=== PATIENT | male | born 1960 | race Caucasian/White ===

== ENCOUNTER 2023-03-10 09:08 | Outpatient (CLI) | payer MEDICARE, SELFPAY ==
--- NOTE | ~2023-03-10 | CT_ITS ---
Clinical Indication: Shortness of breath, tachycardia CT Scan of the Chest with Contrast: Technique: Contiguous sections were acquired throughout the chest after intravenous administration of 100 cc of Omnipaque 350. Dose reduction technique was used on this scan by utilizing automated expos ure control and iterative reconstruction technique. The dose-length product (DLP) was 250.09 mGy-cm. COMPARISON: 10/04/2015 Findings: There is no evidence of any significant mediastinal, hilar or axillary lymphadenopathy. There is no f illing defect in the pulmonary arterial tree to suggest pulmonary embolus. There is no evidence of ao rtic dissection or aneurysm. There is no evidence of pleural or pericardial effusion. Mild emphysema. Calcified granuloma noted at the right lung base. Images through the upper abdomen reveal no abnormalities. Impression: No evidence of pulmonary embolus, aortic dissection, or aortic aneurysm. Mild emphysema. Reviewed, dictated and finalized at [facility]. Impression: No evidence of pulmonary embolus, aortic dissection, or aortic aneurysm. Mild emphysema.
[2023-03-10 09:32] LABS: Estimated Glomerular Filt Rate > 60
== END 2023-03-10 09:09 | disposition home or self-care (01) ==
PROVIDERS: PCP Family Medicine; Visit Provider Physician Assistant
DX: R06.02 Shortness of breath (principal); R00.0 Tachycardia, unspecified; J43.9 Emphysema, unspecified
CPT/HCPCS: 71275; Q9967

== ENCOUNTER 2024-09-12 18:31 | Emergency (ER) | payer MEDICARE, SELFPAY ==
--- NOTE | ~2024-09-12 | CT_ITS ---
EXAMINATION: CT cervical spine wo con DATE: 09/12/2024 19:18 INDICATION: Lower extremity numbness post 6 foot fall from truck TECHNIQUE: Computed tomography (CT) of the cervical spine was performed without intravenous contrast. Automated exposure control and iterative reconstruction technique were employed. The dose-length pro duct was 294.07 mGy-cm. COMPARISON: None FINDINGS: Alignment is normal. Moderate osteoarthritis at the atlantoaxial articulation. Vertebral body heights are normal. No fracture. Disc heights are normal. Disc bulges contributing to minimal central canal stenosis at L2-L3, L3-L4 and L4-L5 and more prominent disc bulge with endplate osteophytes and mild c entral canal stenosis at C6-C7. Moderate uncovertebral osteoarthritis on the right at C6-C7. Mild unc overtebral osteoarthritis throughout the remainder of the cervical spine. Severe facet osteoarthritis bilaterally at C7-T1 and on the right at C2-C3 and C3-C4. Mild to moderate facet osteoarthritis at t he remaining cervical levels. This contributes to multilevel bilateral minimal to mild neural foramin al stenosis is prominent bilaterally at C6-C7. Atherosclerotic calcifications at the bilateral caroti d bulbs. Cervical soft tissues are otherwise unremarkable. Mild biapical pleural-parenchymal scarring . IMPRESSION: 1. Mild cervical spondylosis. No acute osseous abnormality. Reviewed, dictated and finalized at location A.
--- NOTE | ~2024-09-12 | CT_ITS ---
EXAMINATION: CT thoracic lumbar wo con DATE: 09/12/2024 19:18 INDICATION: Lower extremity numbness post 6 foot fall from truck TECHNIQUE: Computed tomography (CT) of the thoracic MR lumbar spine was performed without intravenous contrast. Automated exposure control and iterative reconstruction technique were employed. The dose- length product was 541.15 mGy-cm. COMPARISON: None FINDINGS: Thoracic spine: 8 degree thoracic dextrocurvature. Sagittal alignment is normal. No interval change in minimal anteri or wedging at T7 and mild central endplate compression fracture along the superior endplates of T3 an d T9-T12. No acute fractures identified. There is mild disc height loss at multiple levels throughout the thoracic spine with vacuum phenomena at multiple levels in the mid and lower thoracic spine. Rig ht paracentral disc protrusion at T10-T11 and T12-L1 and small central disc protrusion at T11-T12 whi ch resulting in mild central canal stenosis at each level. There is mild to moderate multilevel bilat eral thoracic facet osteoarthritis most prominent at the upper thoracic lower thoracic spine. Paraver tebral soft tissues and visualized portion of lungs are unremarkable. Lumbar spine: 12 degrees lumbar levoscoliosis. 2 mm retrolisthesis L1 on L2 and 3 mm retrolisthesis L4 on L5. Chron ic appearing mild anterior wedging at L1 and additional chronic superior endplate compression fractur e at the left superior endplate of L3. There is anterior fusion and and posterior fusion at the bilat eral facet joints at L3-L4. Severe right-sided predominant disc height loss at L1-L2 and left-sided p redominant disc height loss at L4-L5, both with associated sclerotic Modic type III degenerative endp late changes. Severe bilateral facet osteoarthritis at L2-L3, L4-L5 and L5-S1. Moderate central canal stenosis at L2-L3, mild to moderate central canal stenosis at L1-L2 and L4-L5. There is multilevel n eural foraminal stenosis, moderate bilaterally at L1-L2, L2-L3, L4-L5 and L5-S1 and mild bilaterally at L3-L4. Bilateral nonobstructing nephrolithiasis paravertebral soft tissues are otherwise unremarka ble. As in close proximity bilateral sacroiliac joints. IMPRESSION: 1. Multiple chronic compression fractures in the thoracic and lumbar spine. No acute osseous abnormal ity. 2. Mild thoracic and severe lumbar spondylosis. 3. Bilateral nonobstructing nephrolithiasis. Reviewed, dictated and finalized at location A. IMPRESSION: 1. Multiple chronic compression fractures in the thoracic and lumbar spine. No acute osseous abnormality. 2. Mild thoracic and severe lumbar spondylosis. 3. Bilateral nonobstructing nephrolithiasis.
[2024-09-12 18:36] VITALS: BP 185/85; PULSE 121; RESP 18; TEMP 36.7; O2SAT 94
--- NOTE | 2024-09-12 18:52 | ECG_ITS ---
Test Date: 2024-09-12 20:43:01 Measurements Intervals [place]born Rate: 108 P: 82 [place]: 128 QRS: 69 QRSD: 91 T: 71 QT: 332 QTc: 445 Interpretive Statements SINUS TACHYCARDIA No previous ECG available for comparison Electronically Signed On 09-13-2024 09:41:36 CDT by Komal Harris M.D.
--- NOTE | 2024-09-12 18:54 | ED.FALL ---
HPI - Fall General Chief Complaint: Fall <Mayra Marquez APRN - Last Filed: 09/12/24 18:58> Stated Complaint: fall with back pain <Mayra Marquez APRN - Last Filed: 09/12/24 18:58> Time Seen by Provider: 09/12/24 18:45 <Mayra Marquez APRN - Last Filed: 09/12/24 18:58> Patient is a 64-year-old male who presents to the ER after falling off the back of a truck onto concrete. He reports he was reporting a friend move some things for when he stepped off the back of a truck and landed on his back. Patient reports he knocked the wind up myself. He endorses some tingling in his lower extremities. Patient also endorses increased pain in lower extremities with movement. He denies any chest pain, shortness of breath, or one-sided weakness/tingling/numbness. <Mayra Marquez APRN - Last Filed: 09/12/24 18:58> History of Present Illness HPI Narrative: Kisha HPI. No injury to head. Only back. No lower extremity numbness or weakness. Pain worse with movement. <Brody Aden MD - Last Filed: 09/12/24 22:03> Related Data Home Medications: Home Medications Medication Instructions Recorded Confirmed B6 0.85 mg-folic 200 tablet PO 1XD 02/23/23 05/08/23 [id number] oral chewable tablet (Neuriva Plus) alprazolam 2 mg tablet 2 mg PO BID 02/23/23 05/08/23 baclofen 20 mg tablet 20 mg PO TID 02/23/23 05/08/23 mecobalamin (vitamin B12) 1,000 1,000 mcg PO BID 02/23/23 05/08/23 mcg chewable tablet mirtazapine 45 mg tablet 45 mg PO DAILY 02/23/23 05/08/23 omega-3 fatty acids 1,000 mg 1,000 mg PO DAILY 02/23/23 05/08/23 capsule vitamin A 2,400 mcg capsule 2,400 mcg PO DAILY 02/23/23 05/08/23 vitamin E (dl, acetate) 180 mg 180 mg PO DAILY 02/23/23 05/08/23 (400 unit) capsule <Mayra Marquez APRN - Last Filed: 09/12/24 18:58> Allergies/Adverse Reactions: Allergies Allergy/AdvReac Type Severity Reaction Status Date / Time No Known Allergies Allergy Unverified 05/08/23 11:10 <Mayra Marquez APRN - Last Filed: 09/12/24 18:58> Review of Systems Constitutional: Constitutional: Reports no additional constitutional complaints <Brody Aden MD - Last Filed: 09/12/24 22:03> Cardiovascular: Cardiovascular: Reports no additional cardiovascular complaints <Brody Aden MD - Last Filed: 09/12/24 22:03> Respiratory: Respiratory: Reports no additional respiratory complaints <Brody Aden MD - Last Filed: 09/12/24 22:03> Musculoskeletal: Musculoskeletal: Reports back pain, Denies arthralgias, Denies joint swelling and Denies muscle cramps <Brody Aden MD - Last Filed: 09/12/24 22:03> Neurologic: Reports system reviewed and no additional complaints, except as documented <Brody Aden MD - Last Filed: 09/12/24 22:03> PMFSH Past Medical History Medical History: Medical History Anxiety Seizures Last 09/26/2020 Shortness of Breath <Mayra Marquez APRN - Last Filed: 09/12/24 18:58> Social History Social History: Social History Smoking status: Never smoker (Never tobacco smoker - smokes marijuana , addressed again today) <Mayra Marquez APRN - Last Filed: 09/12/24 18:58> Exam Narrative: GENERAL: Well-appearing, well-nourished, and in no acute distress. HEAD: Normocephalic, atraumatic ENT: Mucous membranes moist. NECK: Supple. C-spine immobilized but no midline tenderness and brace removed. CHEST: Clear to auscultation. No respiratory distress. HEART: Tachycardic regular. Normal peripheral pulses. Back: Mild discomfort over the upper lumbar vertebrae where there are abrasions that bandages been placed over. No step-offs. No bruising. Diffuse paraspinal muscle tenderness in the lower lumbar back. EXTREMITIES: Normal range of motion. No edema. NEURO: Alert
[2024-09-12 20:37] VITALS: BP 178/111; PULSE 122; RESP 19; TEMP 36.9; O2SAT 98
[2024-09-12] MEDS: HYDROcodone/acetaminophen (*CRX) 5-325 MG TABLET 1 TAB PO (20:39)
[2024-09-12] MEDS: SODIUM CHLORIDE 0.9% IV 1,000 ML 999 ML IV CONT (20:45)
[2024-09-12] MEDS: diazePAM INJ (*CRX) 10 MG/2 ML SYRINGE 5 MG IV PUSH (20:46)
[2024-09-12] MEDS: KETOROLAC 30 MG/ML VIAL (*BKC) IV PUSH (20:46)
== END 2024-09-12 22:10 | disposition home or self-care (01) ==
PROVIDERS: Emergency Provider Emergency Medicine
DX: M54.50 Low back pain, unspecified (principal); M47.816 Spondylosis without myelopathy or radiculopathy, lumbar region; F41.9 Anxiety disorder, unspecified
CPT/HCPCS: 72125; 72128; 72131; 93005; 96361; 96374; 96375; 99284; A9270; J1885; J3360; J7030

== ENCOUNTER 2024-09-16 10:47 | Emergency (ER) | payer MEDICARE, SELFPAY ==
--- NOTE | ~2024-09-16 | XR_ITS ---
EXAMINATION: XR chest 2V DATE: 09/16/2024 12:21 INDICATION: Chest pain. TECHNIQUE: Frontal and lateral views of the chest were obtained. COMPARISON: Thoracic spine CT 09/12/2024 FINDINGS: A calcified right lung nodule is consistent with old granulomatous disease. No pleural effu yuly or pneumothorax. The heart size is normal. IMPRESSION: 1. No acute cardiopulmonary disease. Reviewed, dictated and finalized at location A.
[2024-09-16 10:53] VITALS: BP 175/111; PULSE 138; RESP 20; TEMP 36.6; O2SAT 97
--- NOTE | 2024-09-16 10:53 | ECG_ITS ---
Test Date: 2024-09-16 10:59:36 Measurements Intervals Nelson Rate: 124 P: 85 [place]: 137 QRS: 68 QRSD: 93 T: 69 QT: 300 QTc: 431 Interpretive Statements SINUS TACHYCARDIA Compared to ECG 09/12/2024 20:43:01 No significant changes Electronically Signed On 09-16-2024 15:37:05 CDT by Komal Harris M.D.
[2024-09-16] MEDS: KETOROLAC 15 MG/ML VIAL (*BKC) IV PUSH (12:24)
[2024-09-16] MEDS: SODIUM CHLORIDE 0.9% IV 1,000 ML 999 ML IV CONT (12:24)
[2024-09-16 12:39] LABS: Basophils Absolute Auto 0.1 K/mm3 (0.0-0.1); Basophils Percent Auto 0.8 % (0.2-1.2); Eosinophils Absolute Auto 0.3 K/mm3 (0-0.3); Eosinophils Percent Auto 2.3 % (0-4.4); Hematocrit 39.9 % (42.0-52.0); Hemoglobin 13.3 g/dL (14.0-18.0); Immature Granulocyte Absolute 0.09 K/mm3 (0.00-0.031); Immature Granulocyte Percent A 0.8 % (0-0.5); Lymphocytes Absolute Auto 1.93 K/mm3 (0.9-3.2); Mean Corpuscular HGB Conc 33.3 g/dl (32-36); Mean Corpuscular Hemoglobin 31.2 pg (26-34); Mean Corpuscular Volume 93.7 fl (80-100); Mean Platelet Volume 8.7 fl (7.4-10.4); Monocytes Absolute Auto 1.1 K/mm3 (0.1-0.6); Monocytes Percent Auto 9.8 % (2.6-8.5); Neutrophils Absolute Auto 7.9 K/mm3 (1.3-6.7); Neutrophils Percent Auto 69.3 % (45.5-73.1); Platelet Count Result 301 k/mm3 (150-375); Red Blood Count 4.26 M/mm3 (4.6-6.20); Red Cell Distribution Width 11.9 % (11.5-14.5); White Blood Count 11.4 K/mm3 (4.5-10.0)
[2024-09-16 12:46] LABS: Alanine Aminotransferase 22 U/L (6-50); Albumin Level 4.3 g/dL (3.5-5.1); Alkaline Phosphatase 58 U/L (38-126); Anion Gap 10 mmol/L (4-12); Aspartate Amino Transferase 25 U/L (17-59); Bilirubin,Total 0.6 mg/dL (0.2-1.3); Blood Urea Nitrogen 17 mg/dL (9-20); Calcium 9.1 mg/dL (8.4-10.2); Carbon Dioxide 26 mmol/L (22-30); Chloride 105 mmol/L (98-107); Estimated CRCL calculation 72 ml/min; Estimated Glomerular Filt Rate > 60; Glucose 94 mg/dL (65-110); Potassium 4.2 mmol/L (3.4-5.0); Sodium 141 mmol/L (137-145)
[2024-09-16 12:48] LABS: Prothrombin Time 13.9 Seconds (11.1-14.7)
[2024-09-16 12:49] LABS: Partial Thromboplastin Time 28.9 Seconds (22.3-36.8)
[2024-09-16 12:56] LABS: Troponin I < 0.012 ng/mL (0.000-0.034)
--- NOTE | 2024-09-16 13:16 | ED_ITS ---
HPI - Back Pain/Injury General Chief Complaint: Back Pain/Injury Stated Complaint: back pain Time Seen by Provider: 09/16/24 11:57 History of Present Illness HPI Narrative: Patient is a 64-year-old male who presents ER with back pain. He had a fall 4 days ago of a truck. He had CT imaging of his C/T/L-spine. There were no acute fractures. He has been taking anti-inflammatories and muscle relaxers. Reports that helps his pain significantly. Unfortunately he has had a couple points over last 2 days where he has increased waves of pain that are sharp. Ill go from his flu up towards his neck. No numbness or tingling in the legs or groin. Normal bowel movements. Denies fevers or chills or sweats. He also had a sharp pain that radiated from his back around his chest. No dyspnea or hemoptysis. No leg swelling. No personal chest pain or shortness of breath. Related Data Home Medications Medication Instructions Recorded Confirmed B6 0.85 mg-folic 200 tablet PO 1XD 02/23/23 05/08/23 [id number] oral chewable tablet (Neuriva Plus) alprazolam 2 mg tablet 2 mg PO BID 02/23/23 05/08/23 baclofen 20 mg tablet 20 mg PO TID 02/23/23 05/08/23 mecobalamin (vitamin B12) 1,000 1,000 mcg PO BID 02/23/23 05/08/23 mcg chewable tablet mirtazapine 45 mg tablet 45 mg PO DAILY 02/23/23 05/08/23 omega-3 fatty acids 1,000 mg 1,000 mg PO DAILY 02/23/23 05/08/23 capsule vitamin A 2,400 mcg capsule 2,400 mcg PO DAILY 02/23/23 05/08/23 vitamin E (dl, acetate) 180 mg 180 mg PO DAILY 02/23/23 05/08/23 (400 unit) capsule Allergies Allergy/AdvReac Type Severity Reaction Status Date / Time No Known Allergies Allergy Unverified 05/08/23 11:10 Review of Systems Review of Systems: All systems reviewed & are unremarkable except as noted in HPI and below Constitutional: Constitutional: Reports no additional constitutional complaints Cardiovascular: Cardiovascular: Reports no additional cardiovascular complaints Gastrointestinal: Gastrointestinal: Reports no additional gastrointestinal complaints Musculoskeletal: Musculoskeletal: Reports no additional musculoskeletal complaints PMFSH Past Medical History Medical History Anxiety Seizures Last 09/26/2020 Shortness of Breath Social History Social History Smoking status: Never smoker (Never tobacco smoker - smokes marijuana , addressed again today) Exam Narrative: GENERAL: Well-appearing, well-nourished, and in no acute distress. HEAD: Normocephalic, atraumatic. ENT: Mucous membranes moist. CHEST: Clear to auscultation. No respiratory distress. HEART: Regular rate and rhythm. Normal peripheral pulses. ABDOMEN: Soft, nontender, nondistended. BACK: No midline or paraspinal tenderness of the T/L-spine. Healing abrasions over the will lower midline vertebrae of the L-spine. EXTREMITIES: Normal range of motion. No edema. SKIN: Warm, dry, no rash. NEURO: Alert and oriented x3. PSYCH: Normal mood and affect. Course Course Emergency Course: Blood work within normal limits. Troponin specifically is negative. Chest x- ray without acute process. Symptoms felt to be musculoskeletal in nature. Patient given reassurance. Continue anti-inflammatories muscle relaxers. Vital Signs Vital signs: Vital Signs Temperature 97.8 F 09/16/24 10:53 Pulse Rate 138 H 09/16/24 10:53 Respiratory Rate 20 09/16/24 10:53 Blood Pressure 175/111 H 09/16/24 10:53 Pulse Oximetry 97 09/16/24 10:53 Oxygen Delivery Room Air 09/16/24 10:53 Temperature 97.8 F 09/16/24 10:53 Pulse Rate 138 H 09/16/24 10:53 Respiratory Rate 20 09/16/24 10:53 Blood Pressure 175/111 H 09/16/24 10:53 Pulse Oximetry 97 09/16/24 10:53 Oxygen Delivery Room Air 09/16/24 10:53 MDM - Back Pain/Injury Lab Data 09/16/24 12:26 09/16/24 12:26 Labs: Lab Results 09/16/24 09/16/24 09/16/24 Range/Units 12:26 12: 12:26 WBC 11.4 H (4.5-10.0) K/mm3 RBC 4.26 L (4.6-6.20) M/mm3 Hgb 13.3 L (14.0-18.0) g/dL Hct 39.9 L (42.0-52.0) % MCV 93.7 (80-100) fl MCH 31.2 (26-34) pg MCHC 33.3 (32-36) g/dl RDW 11.9 (11.5-14.5) % Plt Count 301 (150-375) k/mm3 MPV 8.7 (7.4-10.4) fl Immature Gran % (Auto) 0.8 H (0-0.5) % Neut % (Auto) 69.3 (45.5-73.1) % Lymph % (Auto) 17.0 L (18.3-44.2) % Perkins % (Auto) 9.8 H (2.6-8.5) % Eos % (Auto) 2.3 (0-4.4) % Baso % (Auto) 0.8 (0.2-1.2) % Lymph # (Auto) 1.93 (0.9-3.2) K/mm3 Perkins # (Auto) 1.1 H (0.1-0.6) K/mm3 Eos # (Auto) 0.3 (0-0.3) K/mm3 Baso # (Auto) 0.1 (0.0-0.1) K/mm3 Abs Immat Gran (auto) 0.09 H (0.00-0.031) K/mm3 Absolute Neuts (auto) 7.9 H (1.3-6.7) K/mm3 Absolute Nucleated RBC 0.000 (0.0-0.012) K/mm3 Nucleated RBC % 0.0 (0.0-0.2) % PT 13.9 (11.1-14.7) Seconds INR 1.0 APTT 28.9 (22.3-36.8) Seconds Sodium Cancelled 141 Potassium Cancelled 4.2 Chloride Cancelled Carbon Dioxide Anion Gap BUN Creatinine Estim Creat Clear Calc Estimated GFR Glucose Calcium Total Bilirubin AST ALT Alkaline Phosphatase Troponin I (0.000-0.034) ng/mL Total Protein Albumin 09/16/24 09/16/24 09/16/24 Range/Units 12:26 12:26 12:26 WBC (4.5-10.0) K/mm3 RBC (4.6-6.20) M/mm3 Hgb (14.0-18.0) g/dL Hct (42.0-52.0) % MCV (80-100) fl MCH (26-34) pg MCHC (32-36) g/dl RDW (11.5-14.5) % Plt Count (150-375) k/mm3 MPV (7.4-10.4) fl Immature Gran % (Auto) (0-0.5) % Neut % (Auto) (45.5-73.1) % Lymph % (Auto) (18.3-44.2) % Perkins % (Auto) (2.6-8.5) % Eos % (Auto) (0-4.4) % Baso % (Auto) (0.2-1.2) % Lymph # (Auto) (0.9-3.2) K/mm3 Perkins # (Auto) (0.1-0.6) K/mm3 Eos # (Auto) (0-0.3) K/mm3 Baso # (Auto) (0.0-0.1) K/mm3 Abs Immat Gran (auto) (0.00-0.031) K/mm3 Absolute Neuts (auto) (1.3-6.7) K/mm3 Absolute Nucleated RBC (0.0-0.012) K/mm3 Nucleated RBC % (0.0-0.2) % PT (11.1-14.7) Seconds INR APTT (22.3-36.8) Seconds Sodium Potassium Chloride 105 Carbon Dioxide Cancelled 26 Anion Gap Cancelled 10 BUN Cancelled Creatinine Estim Creat Clear Calc Estimated GFR Glucose Calcium Total Bilirubin AST ALT Alkaline Phosphatase Troponin I (0.000-0.034) ng/mL Total Protein Albumin 09/16/24 09/16/24 09/16/24 Range/Units 12: 12: 12:26 WBC (4.5-10.0) K/mm3 RBC (4.6-6.20) M/mm3 Hgb (14.0-18.0) g/dL Hct (42.0-52.0) % MCV (80-100) fl MCH (26-34) pg MCHC (32-36) g/dl RDW (11.5-14.5) % Plt Count (150-375) k/mm3 MPV (7.4-10.4) fl Immature Gran % (Auto) (0-0.5) % Neut % (Auto) (45.5-73.1) % Lymph % (Auto) (18.3-44.2) % Perkins % (Auto) (2.6-8.5) % Eos % (Auto) (0-4.4) % Baso % (Auto) (0.2-1.2) % Lymph # (Auto) (0.9-3.2) K/mm3 Perkins # (Auto) (0.1-0.6) K/mm3 Eos # (Auto) (0-0.3) K/mm3 Baso # (Auto) (0.0-0.1) K/mm3 Abs Immat Gran (auto) (0.00-0.031) K/mm3 Absolute Neuts (auto) (1.3-6.7) K/mm3 Absolute Nucleated RBC (0.0-0.012) K/mm3 Nucleated RBC % (0.0-0.2) % PT (11.1-14.7) Seconds INR APTT (22.3-36.8) Seconds Sodium Potassium Chloride Carbon Dioxide Anion Gap BUN 17 Creatinine Cancelled 0.80 Estim Creat Clear Calc Cancelled 72 Estimated GFR Cancelled Glucose Calcium Total Bilirubin AST ALT Alkaline Phosphatase Troponin I (0.000-0.034) ng/mL Total Protein Albumin 09/16/24 09/16/24 09/16/24 Range/Units 12:26 12:26 12:26 WBC (4.5-10.0) K/mm3 RBC (4.6-6.20) M/mm3 Hgb (14.0-18.0) g/dL Hct (42.0-52.0) % MCV (80-100) fl MCH (26-34) pg MCHC (32-36) g/dl RDW (11.5-14.5) % Plt Count (150-375) k/mm3 MPV (7.4-10.4) fl Immature Gran % (Auto) (0-0.5) % Neut % (Auto) (45.5-73.1) % Lymph % (Auto) (18.3-44.2) % Perkins % (Auto) (2.6-8.5) % Eos % (Auto) (0-4.4) % Baso % (Auto) (0.2-1.2) % Lymph # (Auto) (0.9-3.2) K/mm3 Perkins # (Auto) (0.1-0.6) K/mm3 Eos # (Auto) (0-0.3) K/mm3 Baso # (Auto) (0.0-0.1) K/mm3 Abs Immat Gran (auto) (0.00-0.031) K/mm3 Absolute Neuts (auto) (1.3-6.7) K/mm3 Absolute Nucleated RBC (0.0-0.012) K/mm3 Nucleated RBC % (0.0-0.2) % PT (11.1-14.7) Seconds INR APTT (22.3-36.8) Seconds Sodium Potassium Chloride Carbon Dioxide Anion Gap BUN Creatinine Estim Creat Clear Calc Estimated GFR > 60 Glucose Cancelled 94 Calcium Cancelled 9.1 Total Bilirubin Cancelled AST ALT Alkaline Phosphatase Troponin I (0.000-0.034) ng/mL Total Protein Albumin 09/16/24 09/16/24 09/16/24 Range/Units 12:26 12:26 12:26 WBC (4.5-10.0) K/mm3 RBC (4.6-6.20) M/mm3 Hgb (14.0-18.0) g/dL Hct (42.0-52.0) % MCV (80-100) fl MCH (26-34) pg MCHC (32-36) g/dl RDW (11.5-14.5) % Plt Count (150-375) k/mm3 MPV (7.4-10.4) fl Immature Gran % (Auto) (0-0.5) % Neut % (Auto) (45.5-73.1) % Lymph % (Auto) (18.3-44.2) % Perkins % (Auto) (2.6-8.5) % Eos % (Auto) (0-4.4) % Baso % (Auto) (0.2-1.2) % Lymph # (Auto) (0.9-3.2) K/mm3 Perkins # (Auto) (0.1-0.6) K/mm3 Eos # (Auto) (0-0.3) K/mm3 Baso # (Auto) (0.0-0.1) K/mm3 Abs Immat Gran (auto) (0.00-0.031) K/mm3 Absolute Neuts (auto) (1.3-6.7) K/mm3 Absolute Nucleated RBC (0.0-0.012) K/mm3 Nucleated RBC % (0.0-0.2) % PT (11.1-14.7) Seconds INR APTT (22.3-36.8) Seconds Sodium Potassium Chloride Carbon Dioxide Anion Gap BUN Creatinine Estim Creat Clear Calc Estimated GFR Glucose Calcium Total Bilirubin 0.6 AST Cancelled 25 ALT Cancelled 22 Alkaline Phosphatase Cancelled Troponin I (0.000-0.034) ng/mL Total Protein Albumin 09/16/24 09/16/24 09/16/24 Range/Units 12:26 12:26 12:26 WBC (4.5-10.0) K/mm3 RBC (4.6-6.20) M/mm3 Hgb (14.0-18.0) g/dL Hct (42.0-52.0) % MCV (80-100) fl MCH (26-34) pg MCHC (32-36) g/dl RDW (11.5-14.5) % Plt Count (150-375) k/mm3 MPV (7.4-10.4) fl Immature Gran % (Auto) (0-0.5) % Neut % (Auto) (45.5-73.1) % Lymph % (Auto) (18.3-44.2) % Perkins % (Auto) (2.6-8.5) % Eos % (Auto) (0-4.4) % Baso % (Auto) (0.2-1.2) % Lymph # (Auto) (0.9-3.2) K/mm3 Perkins # (Auto) (0.1-0.6) K/mm3 Eos # (Auto) (0-0.3) K/mm3 Baso # (Auto) (0.0-0.1) K/mm3 Abs Immat Gran (auto) (0.00-0.031) K/mm3 Absolute Neuts (auto) (1.3-6.7) K/mm3 Absolute Nucleated RBC (0.0-0.012) K/mm3 Nucleated RBC % (0.0-0.2) % PT (11.1-14.7) Seconds INR APTT (22.3-36.8) Seconds Sodium Potassium Chloride Carbon Dioxide Anion Gap BUN Creatinine Estim Creat Clear Calc Estimated GFR Glucose Calcium Total Bilirubin AST ALT Alkaline Phosphatase 58 Troponin I < 0.012 (0.000-0.034) ng/mL Total Protein Cancelled 8.0 Albumin Cancelled 4.3 Imaging Data Radiologist's impression: ITS Impressions Chest X-Ray 09/16/24 12:21 IMPRESSION: 1. No acute cardiopulmonary disease. ECG Data EKG #1: ECG completion date: 09/16/24 ECG completion time: 10:59 EKG Interpretation: tachycardia (124), sinus rhythm, non-specific ST changes, normal QRS, normal QT and NL axis Discharge Plan Discharge Clinical Impression: Chest pain Patient Disposition: Home, Self-Care Condition: Stable Instructions: Antibiotic Form, Chest Pain (ED) Additional Instructions: Please return to the emergency department if you develop severe and persistent chest pain, difficulty breathing, dizziness, leg swelling or if you are coughing up blood as these can be signs of a medical emergency. Please call your doctor for a follow up appointment to determine the need for further testing. Prescriptions: No Action alprazolam 2 mg tablet 2 mg PO BID baclofen 20 mg tablet 20 mg PO TID mirtazapine 45 mg tablet 45 mg PO DAILY Neuriva Plus 0.85 mg-200 mcg-1.2 mcg tablet,chewable PO 1XD vitamin A 2,400 mcg capsule 2,400 mcg PO DAILY mecobalamin (vitamin B12) 1,000 mcg tablet,chewable 1,000 mcg PO BID omega-3 fatty acids 1,000 mg capsule 1,000 mg PO DAILY vitamin E (dl, acetate) 180 mg (400 unit) capsule 180 mg PO DAILY cyclobenzaprine 10 mg tablet 10 mg PO TID PRN (Reason: muscle spasm) Qty: 20 0RF naproxen 375 mg tablet 375 mg PO BID Qty: 14 0RF Follow-up/Referrals: Dahl,Juan M., [employer] [Primary Care Provider] - 1 Week Quality HEART score for chest pain patients History: slightly suspicious ECG: normal Age: > or = to 65 years Risk factors: 1 or 2 risk factors Troponin: < or = to 1x normal limit Heart score: 3
== END 2024-09-16 14:33 | disposition home or self-care (01) ==
PROVIDERS: Emergency Provider Emergency Medicine; PCP Nurse Practitioner Family
DX: R07.9 Chest pain, unspecified (principal); R00.0 Tachycardia, unspecified
CPT/HCPCS: 36415; 71046; 80053; 84484; 85025; 85610; 85730; 93005; 96361; 96374; 99284; J1885; J7030